=== PATIENT | female | born 1945 | race Caucasian/White ===

== ENCOUNTER 2018-01-20 09:15 | Outpatient (REF) | payer OTHER, SELFPAY ==
[2018-01-20 21:37] LABS: ALT 19 U/L (12-78); AST 15 U/L (15-37); Albumin 3.6 g/dL (3.4-5.0); Alkaline Phosphatase 104 U/L (46-116); Anion Gap 6.9 mmol/L (3-11); BUN 12 mg/dL (7-18); Bilirubin, Total 0.3 mg/dL (0.2-1.0); CO2 29.1 mmol/L (21.0-32.0); CREATININE 0.96 mg/dL (0.55-1.02); Calcium 9.3 mg/dL (8.5-10.1); Chloride 103 mmol/L (98-107); Cholesterol 280 mg/dL (50-200); Estimated GFR 57.29 (mL/min/1.73m2); Glucose 94 mg/dL (70-100); HDL Cholesterol 41 mg/dL (40-60); LDL CHOLESTEROL 209 mg/dL (<100); Potassium 4.5 mmol/L (3.5-5.1); Sodium 139 mmol/L (136-145); Total Protein 7.1 g/dL (6.4-8.2); Triglyceride 177 mg/dL (30-150)
== END 2018-01-20 09:35 ==
LOC: NCHCN 09:15
PROVIDERS: PCP Family Medicine; Visit Provider Nurse Practitioner Family
DX: R06.02 Shortness of breath (principal); H34.823 Venous engorgement, bilateral; Z13.220 Encounter for screening for lipoid disorders
CPT/HCPCS: 80053; 80061; 83721

== ENCOUNTER 2018-01-29 01:13 | Outpatient (CLI) | payer OTHER, SELFPAY ==
--- NOTE | 2018-01-29 10:30 | MERGE_ITS ---
*[facility]* *[facility]* [address] [place] [address] Date of study: 01/29/2018 Transthoracic Echocardiography M-mode, complete 2D, complete spectral Doppler, and color Doppler *STUDY CONCLUSIONS* Summary: 1. Left ventricle: The cavity size was normal. Wall thickness was normal. Systolic function was normal. The estimated ejection fraction was 60-65%. Wall motion was normal; there were no regional wall motion abnormalities. Some parameters suggest diastolic dysfunction. 2. Right ventricle: The cavity size was normal. Wall thickness was normal. Systolic function was normal. 3. Pulmonary arteries: Systolic pressure could not be accurately estimated. 4. Inferior vena cava: The vessel was patent and normal in size. The respirophasic diameter changes were in the normal range (greater than or equal to 50%). *PATIENT PRESENTATION* Height: 160cm ((63in) ) S/D Pressure: 140 / 86 Weight: 77.1kg ((169.6lb) ) BSA: 1.88m^2 Test start time: 10:40 AM. Test stop time: 11:40 AM. PERFORMING Unknown PERFORMING [facility] [employer]ACING ME[employer]IC Nupur Lopez, (R)(CT), [facility] ORDERING Rica Barton REFERRING Rica Barton *PROCEDURE DATA* Procedure information: The patient was identified by two identifiers. This study was interpreted by [facility]. Pertinent images and digital data are archived for permanent storage and are available for subsequent review. No prior study was available for comparison. Study status: Routine. Transthoracic echocardiography. M-mode, complete 2D, complete spectral Doppler, and color Doppler. A Transthoracic Echocardiogram was performed. Scanning was performed from the parasternal, apical, subcostal, and suprasternal notch acoustic windows. Images were obtained using an [id number] cardiac ultrasound machine. Image quality was adequate. Study completion: The patient tolerated the procedure well. There were no complications. History: PMH: Venous engorgement. SOB. *CARDIAC ANATOMY* Left ventricle: The cavity size was normal. Wall thickness was normal. Systolic function was normal. The estimated ejection fraction was 60-65%. Wall motion was normal; there were no regional wall motion abnormalities. Some parameters suggest diastolic dysfunction. Aortic valve: Trileaflet; normal thickness leaflets. Mobility was not restricted. Doppler: Transvalvular velocity was within the normal range. There was no stenosis. There was no significant regurgitation. VTI ratio of LVOT to aortic valve: 0.64. Valve area (VTI): 2cm^2. Indexed valve area (VTI): 1.1cm^2/m^2. Peak velocity ratio of LVOT to aortic valve: 0.6. Valve area (Vmax): 1.9cm^2. Indexed valve area (Vmax): 1cm^2/m^2. Mean velocity ratio of LVOT to aortic valve: 0.7. Valve area (Vmean): 2.2cm^2. Indexed valve area (Vmean): 1.2cm^2/m^2. Mean gradient (S): 5.5mm Hg. Peak gradient (S): 11.2mm Hg. Aorta: Aortic root: The aortic root was normal in size. Ascending aorta: The ascending aorta was normal in size. Mitral valve: Structurally normal valve. Mobility was not restricted. Doppler: Transvalvular velocity was within the normal range. There was no evidence for stenosis. There was trivial regurgitation. Valve area by pressure half-time: 3.3cm^2. Indexed valve area by pressure half-time: 1.8cm^2/m^2. Peak gradient (D): 2.9mm Hg. Left atrium: The atrium was normal in size. Right ventricle: The cavity size was normal. Wall thickness was normal. Systolic function was normal. Pulmonic valve: The pulmonary valve appears to be grossly normal. Doppler: Transvalvular velocity was within the normal range. There was no evidence for stenosis. There was no significant regurgitation. Peak gradient (S): 4.6mm Hg. Tricuspid valve: Structurally normal valve. Doppler: Transvalvular velocity was within the normal range. There was no evidence for stenosis. There was trivial regurgitation. Pulmonary artery: Systolic pressure could not be accurately estimated. Right atrium: The atrium was normal in size. Pericardium: There was no pericardial effusion. Systemic veins: Inferior vena cava: Well visualized. The vessel was patent and normal in size. The respirophasic diameter changes were in the normal range (greater than or equal to 50%). Baseline ECG: Normal sinus rhythm. Measurements Left ventricle Value Reference LV ID, ED, PLAX 4.8 cm 3.5 - 6.0 LV ID, ES, PLAX 3.2 cm 2.1 - 4.0 LV PW thickness, ED, PLAX 1.0 cm LV end-diastolic volume, 1-p A2C 57 ml LV ejection fraction, 1-p A2C 65 % LV end-diastolic volume, 1-p A4C 63 ml LV ejection fraction, 1-p A4C 71 % LV e', lateral 0.071 m/sec LV E/e', lateral 12 LV e', medial 0.062 m/sec LV E/e', medial 14 LV e', average 0.067 m/sec LV E/e', average 13 Ventricular septum Value Reference IVS thickness, ED, PLAX 0.8 cm LVOT Value Reference LVOT ID, A-P 2.0 cm LVOT area 3.1 cm^2 LVOT peak velocity, S 1 m/sec LVOT mean velocity, S 0.78 m/sec LVOT VTI, S 21.6 cm LVOT peak gradient, S 4 mm Hg LVOT mean gradient, S 2.6 mm Hg Stroke volume (SV), LVOT DP 67 ml Stroke index (SV/bsa), LVOT DP 36 ml/m^2 Aortic valve Value Reference Aortic valve peak velocity, S 1.7 m/sec Aortic valve mean velocity, S 1.11 m/sec Aortic valve VTI, S 33.5 cm Aortic mean gradient, S 5.5 mm Hg Aortic peak gradient, S 11.2 mm Hg VTI ratio, LVOT/AV 0.64 Aortic valve area, VTI 2 cm^2 Velocity ratio, peak, LVOT/AV 0.6 Aortic valve area, peak velocity 1.9 cm^2 Velocity ratio, mean, LVOT/AV 0.7 Aortic valve area, mean velocity 2.2 cm^2 Aortic valve area/bsa, mean velocity 1.2 cm^2/m^2 Aorta Value Reference Aortic root ID, ED 2.9 cm Ascending aorta ID, A-P, S 3.1 cm RVOT Value Reference RVOT VTI, S 12.8 cm Left atrium Value Reference LA ID, A-P, ES 2.7 cm LA ID/bsa, A-P 1.4 cm/m^2 <=2.2 LA area, ES, A4C 15.7 cm^2 8.8 - 23.4 LA area, ES, A2C 15 cm^2 LA volume/bsa, ES, 1-p A4C 24 ml/m^2 LA volume, ES, 2-p 41 ml LA volume/bsa, ES, 2-p 22 ml/m^2 LA/aortic root ratio 0.92 Mitral valve Value Reference Mitral E-wave peak velocity 0.85 m/sec Mitral A-wave peak velocity 1.08 m/sec Mitral deceleration time 230 ms 150 - 230 Mitral pressure half-time 67 ms Mitral peak gradient, D 2.9 mm Hg Mitral E/A ratio, peak 0.78 Mitral valve area, PHT, DP 3.3 cm^2 Pulmonary veins Value Reference Pulmonary vein peak velocity, S 0.76 m/sec Pulmonary vein peak velocity, D 0.48 m/sec Pulmonary vein velocity ratio, peak, 1.59 S/D Pulmonary vein A-wave reversal peak 0.39 m/sec velocity Pulmonary vein A-wave reversal 138 ms duration Tricuspid valve Value Reference Tricuspid regurg peak velocity 3.3 m/sec Tricuspid peak RV-RA gradient 43.8 mm Hg Right atrium Value Reference RA area, ES, A4C 14.1 cm^2 8.3 - 19.5 Pulmonic valve Value Reference Pulmonic peak gradient, S 4.6 mm Hg Legend: (L) and (H) cha values outside specified reference range. I have personally reviewed the images and have reviewed and edited the reported findings. Electronically signed by Sourav Madrid 01/29/2018 13:58
== END 2018-01-29 01:33 ==
PROVIDERS: PCP Family Medicine; Visit Provider Nurse Practitioner Family
DX: R06.02 Shortness of breath (principal); H34.823 Venous engorgement, bilateral
CPT/HCPCS: 93306

== ENCOUNTER 2022-11-29 18:48 | Outpatient (REF) | payer MEDICARE, MEDICAID, SELFPAY ==
[2022-11-29 16:54] LABS: Anion Gap 9.5 mmol/L (3-11); BUN 7 mg/dL (7-18); CO2 28.5 mmol/L (21.0-32.0); CREATININE 1.1 mg/dL (0.55-1.02); Calcium 9.5 mg/dL (8.5-10.1); Calculated LDL 180 mg/dL (<100); Chloride 101 mmol/L (98-107); Cholesterol 286 mg/dL (<200); Glucose 95 mg/dL (74-106); HDL Cholesterol 44 mg/dL (40-60); Potassium 4.2 mmol/L (3.5-5.1); Sodium 139 mmol/L (136-145); Triglyceride 311 mg/dL (<150)
[2022-12-03 10:10] LABS: Lyme Ab w Rflx to Lyme Confirm Negative (Negative)
== END 2022-11-29 18:49 | disposition home or self-care (01) ==
LOC: NCHCN 18:48
PROVIDERS: PCP Family Medicine; Visit Provider Nurse Practitioner Family
DX: E78.5 Hyperlipidemia, unspecified (principal); E66.3 Overweight; T14.8XXA Other injury of unspecified body region, initial encounter; W57.XXXA Bitten or stung by nonvenomous insect and other nonvenomous arthropods, initial encounter
CPT/HCPCS: 80048; 80061; 86618